=== PATIENT | male | born 1965 | race Caucasian/White ===

== ENCOUNTER 2016-10-31 10:12 | Emergency (ER) | payer OTHER ==
[2016-10-31 11:34] LABS: HEMOGLOBIN 16.3 gm/dl (14.0-17.5); RED BLOOD COUNT 5.22 M/UL (4.20-5.50); WHITE BLOOD COUNT 14.6 K/UL (4.5-11.0)
[2016-10-31 12:03] LABS: BUN/CREATININE RATIO 28 (0-10)
== END 2016-10-31 14:02 | disposition home or self-care (01) ==
LOC: ER1 10:12
PROVIDERS: Physician Assistant
DX: R10.9 Unspecified abdominal pain (principal); J18.9 Pneumonia, unspecified organism; R11.2 Nausea with vomiting, unspecified; E11.9 Type 2 diabetes mellitus without complications; I10 Essential (primary) hypertension; E78.5 Hyperlipidemia, unspecified; F17.210 Nicotine dependence, cigarettes, uncomplicated; Z90.49 Acquired absence of other specified parts of digestive tract; Z79.84 Long term (current) use of oral hypoglycemic drugs
CPT/HCPCS: 36415; 71010; 80053; 81001; 82150; 82550; 82553; 82962; 83690; 83874; 84484; 85025; 93005; 99284; J2270; J2405; J7050; Q9962

== ENCOUNTER 2016-12-18 09:57 | Emergency (ER) | payer OTHER ==
[2016-12-18 11:19] LABS: HEMOGLOBIN 16.1 gm/dl (14.0-17.5); RED BLOOD COUNT 5.16 M/UL (4.20-5.50); WHITE BLOOD COUNT 12.5 K/UL (4.5-11.0)
[2016-12-18 11:35] LABS: BUN/CREATININE RATIO 16 (0-10)
== END 2016-12-18 15:30 | disposition home or self-care (01) ==
LOC: ER1 09:57
PROVIDERS: Family Medicine
DX: K75.81 Nonalcoholic steatohepatitis (NASH) (principal); F17.200 Nicotine dependence, unspecified, uncomplicated
CPT/HCPCS: 36415; 71020; 80053; 82150; 83690; 85025; 93005; 94664; 96374; 96375; 99284; J2270; J2405; J7050; Q9962

== ENCOUNTER → 2017-03-19 | Outpatient (CLI) | payer OTHER | LOC: EMI 03-09 17:30 | DX: M25.512 Pain in left shoulder (principal) | CPT/HCPCS: 73221 ==

== ENCOUNTER 2020-08-27 09:10 | Emergency (ER) | payer OTHER ==
[~2020-08-27 09:10] MED LIST: LODINE CAP 300300 MG PO
[2020-08-27 09:48] LABS: HEMOGLOBIN 11.8 gm/dl (14.0-17.5); RED BLOOD COUNT 3.88 M/UL (4.20-5.50)
[2020-08-27 10:10] LABS: BUN/CREATININE RATIO 37 (0-10)
== END 2020-08-27 10:54 | disposition other institution (70) ==
LOC: ER1 09:10
PROVIDERS: Internal Medicine
DX: K27.4 Chronic or unspecified peptic ulcer, site unspecified, with hemorrhage (principal); E78.5 Hyperlipidemia, unspecified; I10 Essential (primary) hypertension; E11.9 Type 2 diabetes mellitus without complications; Z90.49 Acquired absence of other specified parts of digestive tract; Z79.899 Other long term (current) drug therapy
CPT/HCPCS: 36415; 73030; 73502; 80053; 82150; 83690; 85025; 85610; 85730; 86850; 86900; 86901; 96374; 96375; 99285; C9113; J2270; J2405; J7120

== ENCOUNTER 2021-01-16 23:00 | Emergency (ER) | payer OTHER ==
[2021-01-17 00:33] LABS: HEMOGLOBIN 14.3 gm/dl (14.0-17.5); RED BLOOD COUNT 4.77 M/UL (4.20-5.50)
[2021-01-17 00:51] LABS: BUN/CREATININE RATIO 25 (0-10)
== END 2021-01-17 07:30 | disposition short-term general hospital (02) ==
LOC: ER1 23:00
PROVIDERS: Emergency Medicine
DX: S32.049A Unspecified fracture of fourth lumbar vertebra, initial encounter for closed fracture (principal); E11.9 Type 2 diabetes mellitus without complications; W13.2XXA Fall from, out of or through roof, initial encounter
CPT/HCPCS: 71260; 80053; 85025; 96374; 96375; 96376; 99284; J2270; J2405; Q9967